=== PATIENT | female | born 1960 | race Caucasian/White ===

== ENCOUNTER 2021-06-20 23:43 | Inpatient (IN) | payer BC ==
[~2021-06-20] VITALS: Ht 160 cm; Wt 56.7 kg
[2021-06-20 23:30] VITALS: BP 122/59
[2021-06-21] VITALS (9 sets, daily range): BP systolic 101–134; BP diastolic 50–64
[2021-06-21] MEDS ORDERED: DEXTROSE 50% SYRINGE 50 ML IV PRN (00:30)
[2021-06-21] MEDS ORDERED: FEROSUL325 MG PO (00:36)
[2021-06-21] MEDS ORDERED: VITAMIN B-121000 MCG PO (00:36)
[2021-06-21] MEDS ORDERED: LIPITOR20 MG PO (00:36)
[2021-06-21] MEDS ORDERED: LISINOPRIL20 MG PO (00:36)
[2021-06-21] MEDS ORDERED: MULTI-VITAMIN1 EACH PO (00:36)
[2021-06-21] MEDS ORDERED: HYDROCHLOROTHIA25 MG PO (00:36)
[2021-06-21] MEDS ORDERED: vitamin d3 PO (00:36)
[2021-06-21] MEDS ORDERED: ULTRAM 50MG50 MG PO (00:36)
[2021-06-21] MEDS ORDERED: PREDNISONE5 MG PO (00:36)
[2021-06-21] MEDS ORDERED: VITAMIN C500 MG PO (00:36)
[2021-06-21] MEDS: HYDROMORPHONE 1MG/1ML INJ IV PRN ×2 (01:20→20:30)
[2021-06-21] MEDS ORDERED: LISINOPRIL 20 MG TAB PO SCH (01:30)
[2021-06-21] MEDS: DEXTROSE 5%/0.45% SOD CHL 1,000 ML IV SCH ×2 (01:32→16:07)
[2021-06-21] MEDS: TRAMADOL HCL 50 MG TAB PO PRN ×4 (03:30→22:50)
[2021-06-21] MEDS ORDERED: METRONIDAZOLE 500MG/NS 100ML 100 ML IV SCH (06:00)
[2021-06-21] MEDS ORDERED: PIPERACILLIN/TAZOBACTAM 3.375 GM in SODIUM CHLORIDE 0.9% 50ML 50 ML IV SCH (06:00)
[2021-06-21] MEDS: METRONIDAZOLE 500MG/NS 100ML 100 ML IV SCH ×3 (06:04→18:00)
[2021-06-21 06:12] LABS: BASOPHILS # (AUTO) 0.1 (0.0-0.1); BASOPHILS % 0.9 % (0.0-1.0); EOSINOPHILS # (AUTO) 0.3 (0.0-0.4); EOSINOPHILS % 3.3 % (0.0-6.0); HEMATOCRIT 35.3 % (34.2-44.1); HEMOGLOBIN 11.4 g/dL (12.0-16.0); LYMPHOCYTES # (AUTO) 1.9 (1.0-3.2); LYMPHOCYTES % 20.5 % (18.0-39.1); MEAN CORPUSCULAR HEMOGLOBIN 31.2 pg (28-32); MEAN CORPUSCULAR HGB CONC 32.3 g/dL (31-35); MEAN CORPUSCULAR VOLUME 96.7 fL (81-99); MONOCYTES # (AUTO) 0.9 (0.2-0.8); MONOCYTES % 10.1 % (4.4-11.3); PLATELET COUNT 408 x10e3/uL (140-360); RED BLOOD COUNT 3.65 x10e6/uL (3.6-5.1); RED CELL DISTRIBUTION WIDTH 14.4 % (11.7-14.4)
[2021-06-21 06:23] LABS: INR 0.9; PROTHROMBIN TIME 12.9 seconds (11.9-14.5)
[2021-06-21 06:24] LABS: PARTIAL THROMBOPLASTIN TIME 30.9 seconds (23.8-35.5)
[2021-06-21 06:32] LABS: ALBUMIN 2.7 g/dL (3.5-5.0); ALBUMIN/GLOBULIN RATIO 0.9 (0.8-2.0); ANION GAP 13.5 mmol/L (8-16); CREATININE, SERUM 0.76 mg/dL (0.57-1.11); POTASSIUM 4.5 mmol/L (3.5-5.1)
[2021-06-21] MEDS: PIPERACILLIN/TAZOBACTAM 3.375 GM in SODIUM CHLORIDE 0.9% 50ML 50 ML IV SCH ×3 (08:00→20:55)
[2021-06-21] MEDS: CYANOCOBALAMIN 1,000 MCG TAB PO SCH (09:00)
[2021-06-21] MEDS: MULTIVITAMINS/MINERALS TAB PO SCH (09:00)
[2021-06-21] MEDS: LISINOPRIL 20 MG TAB PO SCH ×2 (09:00→20:55)
[2021-06-21] MEDS: FERROUS SULFATE 325 MG TAB PO SCH (09:00)
[2021-06-21] MEDS: PREDNISONE 5 MG TAB PO SCH (09:00)
[2021-06-21] MEDS: CHOLECALCIFEROL 1,000 UNIT TAB PO SCH (09:00)
[2021-06-21] MEDS ORDERED: TRAMADOL HCL 50 MG TAB PO SCH (09:00)
[2021-06-21] MEDS: ASCORBIC ACID 500 MG TAB PO SCH (09:00)
[2021-06-21] MEDS: FAMOTIDINE 20 MG/2 ML VIAL IV SCH (16:17)
[2021-06-22] VITALS (8 sets, daily range): BP systolic 121–153; BP diastolic 55–68
[2021-06-22] MEDS: PIPERACILLIN/TAZOBACTAM 3.375 GM in SODIUM CHLORIDE 0.9% 50ML 50 ML IV SCH ×4 (02:37→20:18)
[2021-06-22] MEDS ORDERED: SODIUM CHLORIDE 0.9% 50ML 50 ML ONE ×2 (02:47→09:20)
[2021-06-22] MEDS: DEXTROSE 5%/0.45% SOD CHL 1,000 ML IV SCH ×2 (05:32→20:18)
[2021-06-22] MEDS: METRONIDAZOLE 500MG/NS 100ML 100 ML IV SCH ×5 (05:32→23:20)
[2021-06-22 06:26] LABS: BASOPHILS # (AUTO) 0.1 (0.0-0.1); BASOPHILS % 1.1 % (0.0-1.0); EOSINOPHILS # (AUTO) 0.3 (0.0-0.4); EOSINOPHILS % 3.5 % (0.0-6.0); HEMATOCRIT 34.8 % (34.2-44.1); HEMOGLOBIN 11.5 g/dL (12.0-16.0); LYMPHOCYTES # (AUTO) 1.5 (1.0-3.2); LYMPHOCYTES % 17.8 % (18.0-39.1); MEAN CORPUSCULAR HEMOGLOBIN 31.3 pg (28-32); MEAN CORPUSCULAR VOLUME 94.6 fL (81-99); MONOCYTES # (AUTO) 0.9 (0.2-0.8); MONOCYTES % 10.3 % (4.4-11.3); NEUTROPHILS # (AUTO) 5.6 (2.1-6.9); NEUTROPHILS % 66.9 % (38.7-80.0); PLATELET COUNT 405 x10e3/uL (140-360); RED BLOOD COUNT 3.68 x10e6/uL (3.6-5.1); RED CELL DISTRIBUTION WIDTH 14.3 % (11.7-14.4)
[2021-06-22 06:43] LABS: ALBUMIN 2.6 g/dL (3.5-5.0); ANION GAP 12.7 mmol/L (8-16); CALCIUM 8.1 mg/dL (8.4-10.2); CHOL/HDL RATIO 4.3 (3.0-3.6); CREATININE, SERUM 0.7 mg/dL (0.57-1.11); MAGNESIUM 1.7 MG/DL (1.3-2.1); POTASSIUM 3.7 mmol/L (3.5-5.1)
[2021-06-22] MEDS: TRAMADOL HCL 50 MG TAB PO PRN ×3 (06:50→18:00)
[2021-06-22 07:02] LABS: THYROID STIMULATING HORMONE 0.657 uIU/mL (0.350-4.940)
[2021-06-22] MEDS: FERROUS SULFATE 325 MG TAB PO SCH (09:00)
[2021-06-22] MEDS: FAMOTIDINE 20 MG/2 ML VIAL IV SCH ×2 (09:00→17:38)
[2021-06-22] MEDS: MULTIVITAMINS/MINERALS TAB PO SCH (09:00)
[2021-06-22] MEDS: CYANOCOBALAMIN 1,000 MCG TAB PO SCH (09:00)
[2021-06-22] MEDS: LISINOPRIL 20 MG TAB PO SCH ×2 (09:00→20:21)
[2021-06-22] MEDS: ASCORBIC ACID 500 MG TAB PO SCH (09:00)
[2021-06-22] MEDS: CHOLECALCIFEROL 1,000 UNIT TAB PO SCH (09:00)
[2021-06-22] MEDS: PREDNISONE 5 MG TAB PO SCH (09:00)
[2021-06-22] MEDS: HYDROMORPHONE 1MG/1ML INJ IV PRN ×2 (09:10→20:08)
[2021-06-22] MEDS: CLINDAMYCIN 600MG / 50ML 50 ML IV SCH ×2 (15:45→23:20)
[2021-06-22 16:20] LABS: PHOSPHORUS 2.9 MG/DL (2.3-4.7)
[2021-06-22] MEDS: ONDANSETRON HCL INJ 2MG/ML 2ML 2 MG/ML VIAL IV PRN (20:18)
[2021-06-23] VITALS (8 sets, daily range): BP systolic 110–171; BP diastolic 58–78
[2021-06-23] MEDS: ONDANSETRON HCL INJ 2MG/ML 2ML 2 MG/ML VIAL IV PRN ×2 (02:15→21:03)
[2021-06-23] MEDS: PIPERACILLIN/TAZOBACTAM 3.375 GM in SODIUM CHLORIDE 0.9% 50ML 50 ML IV SCH ×4 (02:15→20:00)
[2021-06-23] MEDS: TRAMADOL HCL 50 MG TAB PO PRN ×3 (02:16→23:10)
[2021-06-23] MEDS: HYDROMORPHONE 1MG/1ML INJ IV PRN ×2 (04:08→13:11)
[2021-06-23] MEDS: METRONIDAZOLE 500MG/NS 100ML 100 ML IV SCH (04:45)
[2021-06-23] MEDS: CLINDAMYCIN 600MG / 50ML 50 ML IV SCH ×3 (06:30→23:10)
[2021-06-23] MEDS: FAMOTIDINE 20 MG/2 ML VIAL IV SCH ×2 (08:21→16:02)
[2021-06-23] MEDS: PREDNISONE 5 MG TAB PO SCH (08:22)
[2021-06-23] MEDS: MULTIVITAMINS/MINERALS TAB PO SCH (09:00)
[2021-06-23] MEDS: LISINOPRIL 20 MG TAB PO SCH ×2 (09:00→21:55)
[2021-06-23] MEDS: CHOLECALCIFEROL 1,000 UNIT TAB PO SCH (09:00)
[2021-06-23] MEDS: FERROUS SULFATE 325 MG TAB PO SCH (09:00)
[2021-06-23] MEDS: CYANOCOBALAMIN 1,000 MCG TAB PO SCH (09:00)
[2021-06-23] MEDS: ASCORBIC ACID 500 MG TAB PO SCH (09:00)
[2021-06-23] MEDS: DEXTROSE 5%/0.45% SOD CHL 1,000 ML IV SCH (09:31)
[2021-06-23] MEDS: ACETAMINOPHEN 325 MG TAB PO PRN (11:24)
[2021-06-23] MEDS ORDERED: DIATRIZOATE MEGL/DIATRIZOA SOD 30 ML BTL PO ONE (14:01)
[2021-06-24] VITALS (8 sets, daily range): BP systolic 114–132; BP diastolic 59–72
[2021-06-24] MEDS: HYDROMORPHONE 1MG/1ML INJ IV PRN ×5 (02:07→23:02)
[2021-06-24] MEDS: ONDANSETRON HCL INJ 2MG/ML 2ML 2 MG/ML VIAL IV PRN ×5 (02:09→23:02)
[2021-06-24] MEDS: PIPERACILLIN/TAZOBACTAM 3.375 GM in SODIUM CHLORIDE 0.9% 50ML 50 ML IV SCH ×4 (02:11→20:30)
[2021-06-24 05:58] LABS: BASOPHILS # (AUTO) 0.1 (0.0-0.1); BASOPHILS % 0.5 % (0.0-1.0); EOSINOPHILS # (AUTO) 0.3 (0.0-0.4); EOSINOPHILS % 1.6 % (0.0-6.0); HEMATOCRIT 35.2 % (34.2-44.1); LYMPHOCYTES # (AUTO) 0.8 (1.0-3.2); LYMPHOCYTES % 4.7 % (18.0-39.1); MEAN CORPUSCULAR HEMOGLOBIN 31.8 pg (28-32); MEAN CORPUSCULAR HGB CONC 34.1 g/dL (31-35); MEAN CORPUSCULAR VOLUME 93.4 fL (81-99); MONOCYTES # (AUTO) 0.7 (0.2-0.8); NEUTROPHILS # (AUTO) 15.7 (2.1-6.9); NEUTROPHILS % 88.6 % (38.7-80.0); PLATELET COUNT 380 x10e3/uL (140-360); RED BLOOD COUNT 3.77 x10e6/uL (3.6-5.1); RED CELL DISTRIBUTION WIDTH 13.9 % (11.7-14.4)
[2021-06-24 06:28] LABS: ALBUMIN 2.3 g/dL (3.5-5.0); ALBUMIN/GLOBULIN RATIO 0.7 (0.8-2.0); AMYLASE 926 U/L (25-125); ANION GAP 11.9 mmol/L (8-16); CALCIUM 8.2 mg/dL (8.4-10.2); CREATININE, SERUM 0.64 mg/dL (0.57-1.11); LIPASE 648 U/L (8-78)
[2021-06-24 06:31] LABS: POTASSIUM 2.9 mmol/L (3.5-5.1)
[2021-06-24] MEDS: CLINDAMYCIN 600MG / 50ML 50 ML IV SCH ×3 (07:00→23:01)
[2021-06-24] MEDS: FAMOTIDINE 20 MG/2 ML VIAL IV SCH ×2 (08:27→16:20)
[2021-06-24] MEDS: PREDNISONE 5 MG TAB PO SCH (08:27)
[2021-06-24] MEDS: LISINOPRIL 20 MG TAB PO SCH ×2 (08:27→21:31)
[2021-06-24] MEDS ORDERED: POTASSIUM CHLORIDE 20MEQ/100ML 200 ML IV ONE ×2 (10:00→13:00)
[2021-06-24] MEDS ORDERED: HEPARIN SOD (PORCINE) 1000 UNIT/ML SDV IV ONE (10:15)
[2021-06-24] MEDS: HEPARIN 25,000 UNIT 1,000 UNIT in DEXTROSE 5% 250ML 250 ML IV SCH (13:59)
[2021-06-24] MEDS ORDERED: HEPARIN SOD (PORCINE) 5,000 UNIT/ML VIAL ONE (14:05)
[2021-06-24] MEDS: DEXTROSE 5%/0.45% SOD CHL 1,000 ML IV SCH ×2 (16:18)
[2021-06-24] MEDS: TRAMADOL HCL 50 MG TAB PO PRN (16:19)
[2021-06-25] VITALS (8 sets, daily range): BP systolic 117–139; BP diastolic 58–95
[2021-06-25] MEDS: TRAMADOL HCL 50 MG TAB PO PRN ×3 (00:53→18:30)
[2021-06-25] MEDS: PIPERACILLIN/TAZOBACTAM 3.375 GM in SODIUM CHLORIDE 0.9% 50ML 50 ML IV SCH ×4 (02:54→20:05)
[2021-06-25] MEDS: HYDROMORPHONE 1MG/1ML INJ IV PRN ×4 (04:07→20:03)
[2021-06-25] MEDS: ONDANSETRON HCL INJ 2MG/ML 2ML 2 MG/ML VIAL IV PRN ×3 (04:07→15:46)
[2021-06-25] MEDS: DEXTROSE 5%/0.45% SOD CHL 1,000 ML IV SCH ×4 (04:36→21:45)
[2021-06-25 05:33] LABS: BASOPHILS # (AUTO) 0.1 (0.0-0.1); BASOPHILS % 0.4 % (0.0-1.0); EOSINOPHILS # (AUTO) 0.6 (0.0-0.4); EOSINOPHILS % 4.9 % (0.0-6.0); HEMOGLOBIN 10.5 g/dL (12.0-16.0); MEAN CORPUSCULAR HEMOGLOBIN 32.3 pg (28-32); MEAN CORPUSCULAR VOLUME 92.3 fL (81-99); MONOCYTES # (AUTO) 0.8 (0.2-0.8); MONOCYTES % 6.1 % (4.4-11.3); NEUTROPHILS % 80.2 % (38.7-80.0); PLATELET COUNT 344 x10e3/uL (140-360); RED BLOOD COUNT 3.25 x10e6/uL (3.6-5.1); RED CELL DISTRIBUTION WIDTH 14.1 % (11.7-14.4)
[2021-06-25 06:14] LABS: ALBUMIN 2.2 g/dL (3.5-5.0); ALBUMIN/GLOBULIN RATIO 0.8 (0.8-2.0); ANION GAP 10.1 mmol/L (8-16); CREATININE, SERUM 0.56 mg/dL (0.57-1.11); POTASSIUM 3.1 mmol/L (3.5-5.1)
[2021-06-25] MEDS: CLINDAMYCIN 600MG / 50ML 50 ML IV SCH ×2 (07:15→15:00)
[2021-06-25] MEDS ORDERED: SODIUM CHLORIDE 0.9% 250ML 250 ML ONE ×2 (08:47→20:09)
[2021-06-25] MEDS: FAMOTIDINE 20 MG/2 ML VIAL IV SCH ×2 (09:00→17:00)
[2021-06-25] MEDS: PREDNISONE 5 MG TAB PO SCH (09:00)
[2021-06-25] MEDS: LISINOPRIL 20 MG TAB PO SCH ×2 (09:00→20:15)
[2021-06-25] MEDS: HEPARIN 25,000 UNIT 1,000 UNIT in DEXTROSE 5% 250ML 250 ML IV SCH ×2 (10:30→13:45)
[2021-06-25] MEDS ORDERED: POTASSIUM CHLORIDE 20MEQ/100ML 100 ML IV ONE ×2 (15:30→21:00)
[2021-06-26] VITALS (7 sets, daily range): BP systolic 127–150; BP diastolic 58–91
[2021-06-26] MEDS: TRAMADOL HCL 50 MG TAB PO PRN ×3 (00:30→18:40)
[2021-06-26] MEDS: ONDANSETRON HCL INJ 2MG/ML 2ML 2 MG/ML VIAL IV PRN ×3 (00:30→21:10)
[2021-06-26] MEDS: HYDROMORPHONE 1MG/1ML INJ IV PRN ×3 (00:30→21:10)
[2021-06-26] MEDS: CLINDAMYCIN 600MG / 50ML 50 ML IV SCH ×4 (02:25→18:00)
[2021-06-26] MEDS: PIPERACILLIN/TAZOBACTAM 3.375 GM in SODIUM CHLORIDE 0.9% 50ML 50 ML IV SCH ×4 (02:55→21:00)
[2021-06-26] MEDS: LISINOPRIL 20 MG TAB PO SCH ×2 (09:00→21:18)
[2021-06-26] MEDS: PREDNISONE 5 MG TAB PO SCH (09:00)
[2021-06-26] MEDS: FAMOTIDINE 20 MG/2 ML VIAL IV SCH ×2 (09:00→17:00)
[2021-06-26 09:12] LABS: BASOPHILS # (AUTO) 0.1 (0.0-0.1); BASOPHILS % 0.3 % (0.0-1.0); EOSINOPHILS # (AUTO) 0.4 (0.0-0.4); EOSINOPHILS % 2.2 % (0.0-6.0); HEMATOCRIT 35.8 % (34.2-44.1); HEMOGLOBIN 11.6 g/dL (12.0-16.0); LYMPHOCYTES # (AUTO) 1.5 (1.0-3.2); LYMPHOCYTES % 8.6 % (18.0-39.1); MEAN CORPUSCULAR HEMOGLOBIN 31.6 pg (28-32); MEAN CORPUSCULAR HGB CONC 32.4 g/dL (31-35); MEAN CORPUSCULAR VOLUME 97.5 fL (81-99); MONOCYTES # (AUTO) 1.2 (0.2-0.8); MONOCYTES % 7.3 % (4.4-11.3); NEUTROPHILS # (AUTO) 13.8 (2.1-6.9); NEUTROPHILS % 81.2 % (38.7-80.0); PLATELET COUNT 368 x10e3/uL (140-360); RED BLOOD COUNT 3.67 x10e6/uL (3.6-5.1); RED CELL DISTRIBUTION WIDTH 14.6 % (11.7-14.4)
[2021-06-26 09:46] LABS: ALANINE AMINOTRANSFERASE 9 IU/L (0-55); ALBUMIN 2.3 g/dL (3.5-5.0); ALBUMIN/GLOBULIN RATIO 0.6 (0.8-2.0); ALKALINE PHOSPHATASE 97 IU/L (40-150); AMYLASE 95 U/L (25-125); ANION GAP 13.2 mmol/L (8-16); BLOOD UREA NITROGEN < 5 mg/dL (7-26); CALCIUM 8.6 mg/dL (8.4-10.2); CARBON DIOXIDE 22 mmol/L (22-29); CHLORIDE 105 mmol/L (98-107); CREATININE, SERUM 0.59 mg/dL (0.57-1.11); EST GLOMERULAR FILTRATION RATE 104 ML/MIN (60-); GLUCOSE 98 mg/dL (74-118); LIPASE 111 U/L (8-78); POTASSIUM 3.2 mmol/L (3.5-5.1); SODIUM 137 mmol/L (136-145)
[2021-06-26 09:51] LABS: BUN/CREATININE RATIO 8 (6-25)
[2021-06-26] MEDS: HEPARIN 25,000 UNIT 1,000 UNIT in DEXTROSE 5% 250ML 250 ML IV SCH (10:30)
[2021-06-26] MEDS ORDERED: POTASSIUM CHLORIDE 20 MEQ TAB CR PO ONE ×2 (16:45→21:00)
[2021-06-26] MEDS ORDERED: SODIUM CHLORIDE 0.9% 50ML 50 ML ONE (18:04)
[2021-06-26] MEDS ORDERED: IOPAMIDOL 370 MG/ML 200 ML INFUS..BTL INJ ONE (18:04)
[2021-06-26] MEDS ORDERED: METRONIDAZOLE 500MG/NS 100ML 100 ML IV SCH (22:00)
[2021-06-26] MEDS: DEXTROSE 5%/0.45% SOD CHL 1,000 ML IV SCH (22:45)
[2021-06-26] MEDS ORDERED: METRONIDAZOLE 500 MG TAB PO ONE (23:00)
[2021-06-27] VITALS (8 sets, daily range): BP systolic 126–154; BP diastolic 54–72
[2021-06-27] MEDS: TRAMADOL HCL 50 MG TAB PO PRN ×4 (00:43→19:26)
[2021-06-27] MEDS: PIPERACILLIN/TAZOBACTAM 3.375 GM in SODIUM CHLORIDE 0.9% 50ML 50 ML IV SCH ×4 (02:00→20:00)
[2021-06-27] MEDS: CLINDAMYCIN 600MG / 50ML 50 ML IV SCH ×3 (02:45→16:32)
[2021-06-27] MEDS: HYDROMORPHONE 1MG/1ML INJ IV PRN ×3 (04:45→15:19)
[2021-06-27] MEDS: METRONIDAZOLE 500 MG TAB PO SCH ×3 (05:15→16:32)
[2021-06-27] MEDS: LISINOPRIL 20 MG TAB PO SCH ×2 (10:18→21:36)
[2021-06-27] MEDS: PREDNISONE 5 MG TAB PO SCH (10:18)
[2021-06-27] MEDS: FAMOTIDINE 20 MG/2 ML VIAL IV SCH ×2 (10:18→15:19)
[2021-06-27 14:04] LABS: BASOPHILS % 0.2 % (0.0-1.0); EOSINOPHILS # (AUTO) 0.1 (0.0-0.4); EOSINOPHILS % 0.4 % (0.0-6.0); HEMATOCRIT 32.6 % (34.2-44.1); HEMOGLOBIN 10.8 g/dL (12.0-16.0); LYMPHOCYTES # (AUTO) 1.1 (1.0-3.2); LYMPHOCYTES % 6.7 % (18.0-39.1); MEAN CORPUSCULAR HEMOGLOBIN 31.5 pg (28-32); MEAN CORPUSCULAR HGB CONC 33.1 g/dL (31-35); MONOCYTES % 6.3 % (4.4-11.3); NEUTROPHILS # (AUTO) 14.2 (2.1-6.9); PLATELET COUNT 501 x10e3/uL (140-360); RED BLOOD COUNT 3.43 x10e6/uL (3.6-5.1); RED CELL DISTRIBUTION WIDTH 14.5 % (11.7-14.4)
[2021-06-27] MEDS: DEXTROSE 5%/0.45% SOD CHL 1,000 ML IV SCH (14:05)
[2021-06-27 14:43] LABS: ALANINE AMINOTRANSFERASE 9 IU/L (0-55); ALBUMIN 2.3 g/dL (3.5-5.0); ALBUMIN/GLOBULIN RATIO 0.7 (0.8-2.0); ALKALINE PHOSPHATASE 106 IU/L (40-150); AMYLASE 111 U/L (25-125); BLOOD UREA NITROGEN < 5 mg/dL (7-26); CALCIUM 8.4 mg/dL (8.4-10.2); CARBON DIOXIDE 21 mmol/L (22-29); CHLORIDE 106 mmol/L (98-107); CREATININE, SERUM 0.55 mg/dL (0.57-1.11); EST GLOMERULAR FILTRATION RATE 112 ML/MIN (60-); GLUCOSE 122 mg/dL (74-118); LIPASE 141 U/L (8-78); SODIUM 138 mmol/L (136-145)
[2021-06-27 14:44] LABS: BUN/CREATININE RATIO 9 (6-25)
[2021-06-27] MEDS: ONDANSETRON HCL INJ 2MG/ML 2ML 2 MG/ML VIAL IV PRN (19:26)
[2021-06-28] VITALS (8 sets, daily range): BP systolic 134–155; BP diastolic 69–83
[2021-06-28] MEDS: METRONIDAZOLE 500 MG TAB PO SCH ×4 (00:30→17:52)
[2021-06-28] MEDS: ONDANSETRON HCL INJ 2MG/ML 2ML 2 MG/ML VIAL IV PRN (00:30)
[2021-06-28] MEDS: HEPARIN 25,000 UNIT 1,000 UNIT in DEXTROSE 5% 250ML 250 ML IV SCH ×2 (01:01→10:30)
[2021-06-28] MEDS: CHLORDIAZEPOXIDE/CLIDINIUM 1 CAP PO SCH ×4 (01:19→21:42)
[2021-06-28] MEDS: PIPERACILLIN/TAZOBACTAM 3.375 GM in SODIUM CHLORIDE 0.9% 50ML 50 ML IV SCH (02:00)
[2021-06-28] MEDS: HYDROMORPHONE 1MG/1ML INJ IV PRN ×4 (02:05→23:10)
[2021-06-28] MEDS: CLINDAMYCIN 600MG / 50ML 50 ML IV SCH ×3 (02:05→17:52)
[2021-06-28] MEDS: DEXTROSE 5%/0.45% SOD CHL 1,000 ML IV SCH (05:37)
[2021-06-28] MEDS: TRAMADOL HCL 50 MG TAB PO PRN ×3 (06:04→20:30)
[2021-06-28] MEDS ORDERED: CHLORDIAZEPOXIDE/CLIDINIUM 1 CAP PO SCH (07:30)
[2021-06-28 08:08] LABS: BASOPHILS # (AUTO) 0.1 (0.0-0.1); BASOPHILS % 0.5 % (0.0-1.0); EOSINOPHILS # (AUTO) 0.5 (0.0-0.4); EOSINOPHILS % 3.7 % (0.0-6.0); HEMATOCRIT 33.6 % (34.2-44.1); HEMOGLOBIN 11.4 g/dL (12.0-16.0); LYMPHOCYTES # (AUTO) 1.4 (1.0-3.2); MEAN CORPUSCULAR HEMOGLOBIN 31.8 pg (28-32); MEAN CORPUSCULAR HGB CONC 33.9 g/dL (31-35); MEAN CORPUSCULAR VOLUME 93.9 fL (81-99); MONOCYTES # (AUTO) 0.9 (0.2-0.8); MONOCYTES % 7.2 % (4.4-11.3); NEUTROPHILS # (AUTO) 9.8 (2.1-6.9); NEUTROPHILS % 77.4 % (38.7-80.0); PLATELET COUNT 535 x10e3/uL (140-360); RED BLOOD COUNT 3.58 x10e6/uL (3.6-5.1); RED CELL DISTRIBUTION WIDTH 14.2 % (11.7-14.4)
[2021-06-28] MEDS ORDERED: MAGNESIUM SULFATE 2GM/50ML 50 ML IV ONE (08:30)
[2021-06-28 08:39] LABS: ALANINE AMINOTRANSFERASE 11 IU/L (0-55); ALBUMIN 2.3 g/dL (3.5-5.0); ALBUMIN/GLOBULIN RATIO 0.7 (0.8-2.0); ALKALINE PHOSPHATASE 95 IU/L (40-150); AMYLASE 103 U/L (25-125); ANION GAP 12.6 mmol/L (8-16); BLOOD UREA NITROGEN < 5 mg/dL (7-26); CALCIUM 8.4 mg/dL (8.4-10.2); CARBON DIOXIDE 24 mmol/L (22-29); CHLORIDE 105 mmol/L (98-107); CREATININE, SERUM 0.54 mg/dL (0.57-1.11); EST GLOMERULAR FILTRATION RATE 115 ML/MIN (60-); GLUCOSE 123 mg/dL (74-118); LIPASE 133 U/L (8-78); SODIUM 139 mmol/L (136-145)
[2021-06-28 08:40] LABS: BUN/CREATININE RATIO 9 (6-25)
[2021-06-28 08:41] LABS: POTASSIUM 2.6 mmol/L (3.5-5.1)
[2021-06-28] MEDS: HYDRALAZINE HCL 20 MG/ML VIAL IV PRN ×2 (09:00→09:59)
[2021-06-28] MEDS: FAMOTIDINE 20 MG/2 ML VIAL IV SCH ×2 (09:40→17:52)
[2021-06-28] MEDS ORDERED: AMLODIPINE BESYLATE 5 MG TAB PO NR (10:30)
[2021-06-28] MEDS: POTASSIUM CHLORIDE 20 MEQ TAB CR PO SCH ×2 (11:25→17:52)
[2021-06-28] MEDS ORDERED: BISACODYL 5 MG TAB EC PO PRN (17:15)
[2021-06-29] VITALS (8 sets, daily range): BP systolic 133–157; BP diastolic 69–87
[2021-06-29] MEDS: METRONIDAZOLE 500 MG TAB PO SCH ×4 (00:21→17:30)
[2021-06-29] MEDS: POTASSIUM CHLORIDE 20 MEQ TAB CR PO SCH (00:22)
[2021-06-29] MEDS ORDERED: SODIUM CHLORIDE 0.9% 250ML 250 ML ONE ×2 (00:24→17:27)
[2021-06-29] MEDS: TRAMADOL HCL 50 MG TAB PO PRN ×3 (02:30→17:45)
[2021-06-29] MEDS: CLINDAMYCIN 600MG / 50ML 50 ML IV SCH ×3 (02:30→17:22)
[2021-06-29] MEDS: CHLORDIAZEPOXIDE/CLIDINIUM 1 CAP PO SCH ×3 (05:59→21:34)
[2021-06-29] MEDS: FAMOTIDINE 20 MG/2 ML VIAL IV SCH ×2 (08:32→17:30)
[2021-06-29 08:36] LABS: BASOPHILS # (AUTO) 0.1 (0.0-0.1); BASOPHILS % 0.5 % (0.0-1.0); EOSINOPHILS # (AUTO) 0.5 (0.0-0.4); EOSINOPHILS % 4.1 % (0.0-6.0); HEMATOCRIT 33.5 % (34.2-44.1); HEMOGLOBIN 11.2 g/dL (12.0-16.0); LYMPHOCYTES # (AUTO) 1.6 (1.0-3.2); LYMPHOCYTES % 12.5 % (18.0-39.1); MEAN CORPUSCULAR HEMOGLOBIN 31.2 pg (28-32); MEAN CORPUSCULAR HGB CONC 33.4 g/dL (31-35); MEAN CORPUSCULAR VOLUME 93.3 fL (81-99); MONOCYTES % 7.6 % (4.4-11.3); NEUTROPHILS # (AUTO) 9.6 (2.1-6.9); PLATELET COUNT 610 x10e3/uL (140-360); RED BLOOD COUNT 3.59 x10e6/uL (3.6-5.1); RED CELL DISTRIBUTION WIDTH 14.5 % (11.7-14.4)
[2021-06-29 08:38] LABS: ALANINE AMINOTRANSFERASE 10 IU/L (0-55); ALBUMIN 2.2 g/dL (3.5-5.0); ALBUMIN/GLOBULIN RATIO 0.7 (0.8-2.0); ALKALINE PHOSPHATASE 85 IU/L (40-150); AMYLASE 105 U/L (25-125); ANION GAP 13.6 mmol/L (8-16); BLOOD UREA NITROGEN < 5 mg/dL (7-26); CALCIUM 8.4 mg/dL (8.4-10.2); CARBON DIOXIDE 20 mmol/L (22-29); CHLORIDE 108 mmol/L (98-107); CREATININE, SERUM 0.53 mg/dL (0.57-1.11); EST GLOMERULAR FILTRATION RATE 117 ML/MIN (60-); GLUCOSE 94 mg/dL (74-118); LIPASE 119 U/L (8-78); MAGNESIUM 1.5 MG/DL (1.3-2.1); POTASSIUM 3.6 mmol/L (3.5-5.1); SODIUM 138 mmol/L (136-145)
[2021-06-29 08:41] LABS: BUN/CREATININE RATIO 9 (6-25)
[2021-06-29] MEDS ORDERED: AMLODIPINE BESYLATE 5 MG TAB PO SCH (09:00)
[2021-06-29] MEDS: HEPARIN 25,000 UNIT 1,000 UNIT in DEXTROSE 5% 250ML 250 ML IV SCH (11:09)
[2021-06-29] MEDS ORDERED: MAGNESIUM SULF 1GRAM/DEXTROSE 100 ML IV ONE (16:30)
[2021-06-29] MEDS ORDERED: MAGNESIUM SULFATE 2GM/50ML 50 ML IV ONE (16:30)
[2021-06-29] MEDS ORDERED: AMLODIPINE BESYLATE 5 MG TAB PO NR (16:45)
[2021-06-29] MEDS ORDERED: POTASSIUM PHOSPHATE 15 MM in SODIUM CHLORIDE 0.9% 250ML 250 ML IV ONE (17:00)
[2021-06-29] MEDS: APIXABAN 5 MG TABLET PO SCH (17:30)
[2021-06-29] MEDS ORDERED: LEVOFLOXACIN 500MG/D5W 100ML 100 ML IV ONE (23:00)
[2021-06-30] VITALS: BP 121/70
[2021-06-30] MEDS: METRONIDAZOLE 500 MG TAB PO SCH ×5 (00:21→23:41)
[2021-06-30] MEDS: TRAMADOL HCL 50 MG TAB PO PRN ×4 (00:21→20:42)
[2021-06-30] MEDS: ACETAMINOPHEN 325 MG TAB PO PRN (03:39)
[2021-06-30 04:00] VITALS: BP 136/69
[2021-06-30 05:37] LABS: BASOPHILS # (AUTO) 0.1 (0.0-0.1); BASOPHILS % 0.6 % (0.0-1.0); EOSINOPHILS # (AUTO) 0.5 (0.0-0.4); EOSINOPHILS % 4.3 % (0.0-6.0); HEMATOCRIT 31.3 % (34.2-44.1); HEMOGLOBIN 10.8 g/dL (12.0-16.0); LYMPHOCYTES # (AUTO) 1.3 (1.0-3.2); LYMPHOCYTES % 11.3 % (18.0-39.1); MEAN CORPUSCULAR HEMOGLOBIN 31.9 pg (28-32); MEAN CORPUSCULAR HGB CONC 34.5 g/dL (31-35); MEAN CORPUSCULAR VOLUME 92.3 fL (81-99); MONOCYTES # (AUTO) 0.9 (0.2-0.8); MONOCYTES % 7.5 % (4.4-11.3); NEUTROPHILS # (AUTO) 8.9 (2.1-6.9); NEUTROPHILS % 75.7 % (38.7-80.0); PLATELET COUNT 622 x10e3/uL (140-360); RED BLOOD COUNT 3.39 x10e6/uL (3.6-5.1); RED CELL DISTRIBUTION WIDTH 14.6 % (11.7-14.4)
[2021-06-30] MEDS: CHLORDIAZEPOXIDE/CLIDINIUM 1 CAP PO SCH ×3 (05:46→20:42)
[2021-06-30 06:07] LABS: AMYLASE 102 U/L (25-125); LIPASE 144 U/L (8-78)
[2021-06-30 06:25] LABS: ALANINE AMINOTRANSFERASE 9 IU/L (0-55); ALBUMIN 2.2 g/dL (3.5-5.0); ALBUMIN/GLOBULIN RATIO 0.7 (0.8-2.0); ALKALINE PHOSPHATASE 85 IU/L (40-150); ANION GAP 12.4 mmol/L (8-16); BLOOD UREA NITROGEN < 5 mg/dL (7-26); CALCIUM 8.2 mg/dL (8.4-10.2); CARBON DIOXIDE 21 mmol/L (22-29); CHLORIDE 106 mmol/L (98-107); CREATININE, SERUM 0.55 mg/dL (0.57-1.11); EST GLOMERULAR FILTRATION RATE 112 ML/MIN (60-); GLUCOSE 161 mg/dL (74-118); MAGNESIUM 1.7 MG/DL (1.3-2.1); PHOSPHORUS 3.5 MG/DL (2.3-4.7); POTASSIUM 3.4 mmol/L (3.5-5.1); SODIUM 136 mmol/L (136-145)
[2021-06-30 06:26] LABS: BUN/CREATININE RATIO 9 (6-25)
[2021-06-30 08:00] VITALS: BP 128/90
[2021-06-30] MEDS: AMLODIPINE BESYLATE 5 MG TAB PO SCH (09:48)
[2021-06-30] MEDS: FAMOTIDINE 20 MG/2 ML VIAL IV SCH ×2 (09:48→16:34)
[2021-06-30] MEDS: APIXABAN 5 MG TABLET PO SCH ×2 (09:48→16:34)
[2021-06-30 10:48] LABS: % IRON SATURATION 61 % (15-50); IRON 72 ug/dL (50-170); TOTAL IRON BINDING CAPACITY 119 ug/dL (261-478); TRANSFERRIN 85 mg/dL (180-382)
[2021-06-30 15:10] VITALS: BP 134/85
[2021-06-30 20:00] VITALS: BP 146/78
[2021-06-30 21:00] VITALS: BP 146/78
[2021-06-30] MEDS ORDERED: LIDOCAINE 4% PATCH TP SCH (21:00)
[2021-06-30] MEDS ORDERED: LEVOFLOXACIN 500MG/D5W 100ML 100 ML IV SCH (23:00)
[2021-07-01] VITALS: BP 121/69
[2021-07-01 04:00] VITALS: BP 146/84
[2021-07-01 05:25] LABS: BASOPHILS # (AUTO) 0.1 (0.0-0.1); BASOPHILS % 0.5 % (0.0-1.0); EOSINOPHILS # (AUTO) 0.4 (0.0-0.4); EOSINOPHILS % 3.9 % (0.0-6.0); HEMATOCRIT 33.1 % (34.2-44.1); HEMOGLOBIN 11.5 g/dL (12.0-16.0); LYMPHOCYTES # (AUTO) 1.4 (1.0-3.2); LYMPHOCYTES % 12.9 % (18.0-39.1); MEAN CORPUSCULAR HEMOGLOBIN 31.8 pg (28-32); MEAN CORPUSCULAR HGB CONC 34.7 g/dL (31-35); MEAN CORPUSCULAR VOLUME 91.4 fL (81-99); MONOCYTES % 9.2 % (4.4-11.3); NEUTROPHILS % 72.9 % (38.7-80.0); PLATELET COUNT 654 x10e3/uL (140-360); RED BLOOD COUNT 3.62 x10e6/uL (3.6-5.1); RED CELL DISTRIBUTION WIDTH 14.9 % (11.7-14.4)
[2021-07-01] MEDS: METRONIDAZOLE 500 MG TAB PO SCH ×3 (05:45→16:54)
[2021-07-01] MEDS: CHLORDIAZEPOXIDE/CLIDINIUM 1 CAP PO SCH (05:45)
[2021-07-01 05:49] LABS: ANION GAP 13.3 mmol/L (8-16); BLOOD UREA NITROGEN < 5 mg/dL (7-26); BUN/CREATININE RATIO 9 (6-25); CALCIUM 8.7 mg/dL (8.4-10.2); CARBON DIOXIDE 23 mmol/L (22-29); CHLORIDE 106 mmol/L (98-107); CREATININE, SERUM 0.58 mg/dL (0.57-1.11); EST GLOMERULAR FILTRATION RATE 106 ML/MIN (60-); GLUCOSE 104 mg/dL (74-118); POTASSIUM 3.3 mmol/L (3.5-5.1); SODIUM 139 mmol/L (136-145)
[2021-07-01 06:28] LABS: FERRITIN 235.22 ng/mL (4.63-204.00)
[2021-07-01 08:25] VITALS: BP 132/70
[2021-07-01 08:48] VITALS: BP 132/70
[2021-07-01] MEDS ORDERED: BISACODYL 5 MG TAB EC PO ONE (09:00)
[2021-07-01] MEDS: FAMOTIDINE 20 MG/2 ML VIAL IV SCH (09:18)
[2021-07-01] MEDS: APIXABAN 5 MG TABLET PO SCH ×2 (09:20→16:54)
[2021-07-01] MEDS: AMLODIPINE BESYLATE 5 MG TAB PO SCH (09:20)
[2021-07-01] MEDS: TRAMADOL HCL 50 MG TAB PO PRN ×2 (09:31→15:55)
[2021-07-01] MEDS ORDERED: POTASSIUM CHLORIDE 20 MEQ TAB CR PO NR (11:30)
[2021-07-01 12:22] VITALS: BP 135/86
[2021-07-01 16:01] VITALS: BP 134/87
[2021-07-01] MEDS ORDERED: LEVOFLOXACIN250 MG PO (17:44)
[2021-07-01] MEDS ORDERED: ELIQUIS5 MG PO (17:44)
[2021-07-01] MEDS ORDERED: ONDANSETRON HCL 4 MG ORAL DISINTEGRATING TAB PO PRN (17:45)
[2021-07-01] MEDS ORDERED: NORVASC10 MG PO (17:45)
[2021-07-01] MEDS ORDERED: FLAGYL375 MG PO (17:45)
[2021-07-01] MEDS ORDERED: LEVOFLOXACIN 500 MG TAB PO SCH (23:00)
[2021-07-02] MEDS ORDERED: BISACODYL 5 MG TAB EC PO SCH (06:00)
[2021-07-02] MEDS ORDERED: BISACODYL 5 MG TAB EC PO ONE (09:00)
== END 2021-07-01 18:25 | disposition home or self-care (01) | DRG 299 ==
LOC: MED/SURG 06-21 00:16
PROVIDERS: ADMIT Internal Medicine; ATTEND Internal Medicine
PROC: 02HV33Z Insertion of Infusion Device into Superior Vena Cava, Percutaneous Approach (ICD-10-PCS; principal; 2021-06-21)
DX: I82.622 Acute embolism and thrombosis of deep veins of left upper extremity (principal); K85.90 Acute pancreatitis without necrosis or infection, unspecified; K57.20 Diverticulitis of large intestine with perforation and abscess without bleeding; M19.90 Unspecified osteoarthritis, unspecified site; M06.9 Rheumatoid arthritis, unspecified; I10 Essential (primary) hypertension; E78.5 Hyperlipidemia, unspecified; Z20.822 Contact with and (suspected) exposure to COVID-19; D75.839 Thrombocytosis, unspecified; E88.09 Other disorders of plasma-protein metabolism, not elsewhere classified; E87.6 Hypokalemia; E83.39 Other disorders of phosphorus metabolism; E83.42 Hypomagnesemia
CPT/HCPCS: 36415; 71045; 74018; 74177; 76705; 80048; 80053; 80061; 82150; 82607; 82728; 82746; 82948; 83036; 83540; 83690; 83735; 84100; 84443; 84466; 85025; 85045; 85610; 85730; 87040; 87045; 87493; 93005; 93971; 94799; 96367; J1170; J1644; J1956; J2405; J2543; J3475; J3480; J7050; J7512; Q9967

== ENCOUNTER 2021-08-26 11:16 | Emergency (ER) | payer BC ==
[~2021-08-26] VITALS: Ht 160 cm; Wt 56.7 kg
[~2021-08-26 11:16] MED LIST: ELIQUIS5 MG PO; FEROSUL325 MG PO; FLAGYL375 MG PO; HYDROCHLOROTHIA25 MG PO; LEVOFLOXACIN250 MG PO; LIPITOR20 MG PO; LISINOPRIL20 MG PO; MULTI-VITAMIN1 EACH PO; NORVASC10 MG PO; PREDNISONE5 MG PO; ULTRAM 50MG50 MG PO; VITAMIN B-121000 MCG PO; VITAMIN C500 MG PO; vitamin d3 PO
[2021-08-26 12:09] LABS: CLARITY,URINE CLOUDY (CLEAR); COLOR,URINE YELLOW (YELLOW); KETONES,URINE NEGATIVE (NEGATIVE); LEUKOCYTE ESTERASE ,URINE LARGE (NEGATIVE); NITRITE,URINE NEGATIVE (NEGATIVE); PROTEIN,URINE DIPSTICK NEGATIVE (NEGATIVE); URINE UROBILINOGEN 0.2 mg/dL (0.2 - 1)
[2021-08-26 12:20] LABS: BACTERIA,URINE FEW /HPF; EPITHELIAL CELLS,URINE FEW /LPF; WBC,URINE (MAN) >50 /HPF (0-5)
[2021-08-26 13:31] VITALS: BP 129/75
== END 2021-08-26 13:35 | disposition home or self-care (01) ==
LOC: ER 11:52
DX: N39.0 Urinary tract infection, site not specified (principal); I10 Essential (primary) hypertension; E78.5 Hyperlipidemia, unspecified; M06.9 Rheumatoid arthritis, unspecified; Z87.19 Personal history of other diseases of the digestive system
CPT/HCPCS: 81001; 87086; 99282

== ENCOUNTER 2024-02-22 15:59 | Emergency (ER) | payer BC ==
[~2024-02-22] VITALS: Ht 160 cm; Wt 56.7 kg
[2024-02-22 19:59] VITALS: TEMP 98
[2024-02-22 20:09] LABS: BASOPHILS # (AUTO) 0.1 (0.0-0.1); BASOPHILS % 0.8 % (0.0-1.0); EOSINOPHILS % 0.1 % (0.0-6.0); HEMATOCRIT 43.1 % (34.2-44.1); HEMOGLOBIN 13.6 g/dL (12.0-16.0); LYMPHOCYTES # (AUTO) 1.4 (1.0-3.2); LYMPHOCYTES % 15.1 % (18.0-39.1); MEAN CORPUSCULAR HEMOGLOBIN 29.6 pg (28-32); MEAN CORPUSCULAR HGB CONC 31.6 g/dL (31-35); MEAN CORPUSCULAR VOLUME 93.9 fL (81-99); MONOCYTES # (AUTO) 0.7 (0.2-0.8); MONOCYTES % 7.7 % (4.4-11.3); NEUTROPHILS # (AUTO) 6.8 (2.1-6.9); NEUTROPHILS % 76.1 % (38.7-80.0); PLATELET COUNT 544 x10e3/uL (140-360); RED BLOOD COUNT 4.59 x10e6/uL (3.6-5.1); RED CELL DISTRIBUTION WIDTH 18.5 % (11.7-14.4); WHITE BLOOD COUNT 8.93 x10e3/uL (4.8-10.8)
[2024-02-22 20:13] LABS: INR 1.03
[2024-02-22 20:14] LABS: PARTIAL THROMBOPLASTIN TIME 34.9 seconds (23.8-35.5)
[2024-02-22 20:21] LABS: ALBUMIN 3.6 g/dL (3.5-5.0); ALBUMIN/GLOBULIN RATIO 1.1 (0.8-2.0); ANION GAP 15.2 mmol/L (8-16); BILIRUBIN,TOTAL 0.2 mg/dL (0.2-1.2); CREATININE, SERUM 0.74 mg/dL (0.57-1.11); POTASSIUM 4.2 mmol/L (3.5-5.1)
[2024-02-22] MEDS: SODIUM CHLORIDE 0.9% 1000ML 1,000 ML IV ONE (20:54)
[2024-02-22 21:08] LABS: CLARITY,URINE SL CLOUDY (CLEAR); COLOR,URINE YELLOW (YELLOW); GLUCOSE, URINE NEGATIVE (NEGATIVE); KETONES,URINE NEGATIVE (NEGATIVE); LEUKOCYTE ESTERASE ,URINE NEGATIVE (NEGATIVE); NITRITE,URINE NEGATIVE (NEGATIVE); PH,URINE 6.5 (5 - 7); PROTEIN,URINE DIPSTICK NEGATIVE (NEGATIVE)
[2024-02-22 21:09] LABS: BILIRUBIN,URINE NEGATIVE (NEGATIVE); URINE UROBILINOGEN 0.2 mg/dL (0.2 - 1)
[2024-02-22 21:28] LABS: AMORPHOUS SEDIMENT,URINE MODERATE (FEW); BACTERIA,URINE MODERATE /HPF; EPITHELIAL CELLS,URINE MODERATE /LPF
[2024-02-22 22:00] VITALS: PULSE 72; RESP 16; O2SAT 100
== END 2024-02-23 01:25 | disposition home or self-care (01) ==
LOC: ER 18:03
DX: R60.9 Edema, unspecified (principal); M79.89 Other specified soft tissue disorders; I10 Essential (primary) hypertension; E78.5 Hyperlipidemia, unspecified; M06.9 Rheumatoid arthritis, unspecified; M19.90 Unspecified osteoarthritis, unspecified site; Z11.52 Encounter for screening for COVID-19; R94.31 Abnormal electrocardiogram [ECG] [EKG]; Z87.19 Personal history of other diseases of the digestive system; F17.210 Nicotine dependence, cigarettes, uncomplicated
CPT/HCPCS: 36415; 71045; 80053; 81001; 83605; 83880; 84484; 85025; 85610; 85730; 87040; 87086; 93005; 99283; J7030; U0002

== ENCOUNTER 2024-05-22 08:51 | Observation (INO) | payer BC ==
[2024-05-19 10:50] LABS: BASOPHILS # (AUTO) 0.1 (0.0-0.1); BASOPHILS % 0.8 % (0.0-1.0); EOSINOPHILS # (AUTO) 0.1 (0.0-0.4); EOSINOPHILS % 0.5 % (0.0-6.0); HEMATOCRIT 43.8 % (34.2-44.1); HEMOGLOBIN 13.9 g/dL (12.0-16.0); LYMPHOCYTES # (AUTO) 1.1 (1.0-3.2); LYMPHOCYTES % 9.8 % (18.0-39.1); MEAN CORPUSCULAR HEMOGLOBIN 29.3 pg (28-32); MEAN CORPUSCULAR HGB CONC 31.7 g/dL (31-35); MEAN CORPUSCULAR VOLUME 92.4 fL (81-99); MONOCYTES # (AUTO) 0.5 (0.2-0.8); MONOCYTES % 4.1 % (4.4-11.3); NEUTROPHILS # (AUTO) 9.5 (2.1-6.9); NEUTROPHILS % 84.5 % (38.7-80.0); PLATELET COUNT 497 x10e3/uL (140-360); RED BLOOD COUNT 4.74 x10e6/uL (3.6-5.1); RED CELL DISTRIBUTION WIDTH 17.6 % (11.7-14.4); WHITE BLOOD COUNT 11.28 x10e3/uL (4.8-10.8)
[2024-05-22] VITALS (7 sets, daily range): BP systolic 103–119; BP diastolic 55–80; PULSE 69–84; RESP 16–18; TEMP 97.2–98.2; O2SAT 95–100
[~2024-05-22] VITALS: Ht 160 cm; Wt 50.3 kg
[~2024-05-22 08:51] MED LIST changes: +FLAGYL375 MG; +MINOCYCLINE HCL50 MG PO
[2024-05-22] MEDS: GABAPENTIN 300 MG CAP ONE (09:11)
[2024-05-22] MEDS: DEXAMETHASONE SOD PHOS 10 MG/1 ML VIAL ONE (09:11)
[2024-05-22] MEDS: CELECOXIB 200 MG CAP ONE (09:11)
[2024-05-22] MEDS: CEFAZOLIN SODIUM 2 GM ONE (09:11)
[2024-05-22] MEDS: LACTATED RINGER'S 1,000 ML ONE (09:12)
[2024-05-22] MEDS ORDERED: LIDOCAINE HCL 2% LOCAL INJ 5 ML SDV VIAL INJ ONE (10:34)
[2024-05-22] MEDS ORDERED: PROPOFOL IV EMULSION 10 MG/ML 20 ML VIAL ONE (10:34)
[2024-05-22] MEDS ORDERED: TRANEXAMIC ACID 20 ML ONE (10:35)
[2024-05-22] MEDS ORDERED: SODIUM CHLORIDE 0.9% 500ML 500 ML ONE (10:35)
[2024-05-22] MEDS ORDERED: Vancomycin IV 500 MG ONE (10:35)
[2024-05-22] MEDS ORDERED: ONDANSETRON HCL INJ 2MG/ML 2ML 2 MG/ML VIAL ONE (11:05)
[2024-05-22] MEDS ORDERED: EPHEDRINE SULFATE INJ 50 MG/ML VIAL ONE (11:05)
[2024-05-22] MEDS ORDERED: DEXAMETHASONE SOD PHOS INJ 4 MG/ML SDV ONE (11:05)
[2024-05-22] MEDS ORDERED: FAMOTIDINE 20 MG/2 ML VIAL IV ONE (11:09)
[2024-05-22] MEDS ORDERED: GLYCOPYRROLATE INJ 0.2 MG/ML VIAL ONE (11:09)
[2024-05-22] MEDS ORDERED: ACETAMINOPHEN 1000 MG/100 ML 100 ML IV ONE (11:12)
[2024-05-22] MEDS ORDERED: PHENYLEPHRINE HCL 1% 10 MG/ML VIAL ONE (11:20)
[2024-05-22] MEDS ORDERED: DIPHENHYDRAMINE HCL INJ 50 MG/ML VIAL IV PRN (12:30)
[2024-05-22] MEDS ORDERED: DOCUSATE SODIUM 100 MG CAP PO PRN (12:30)
[2024-05-22] MEDS ORDERED: ONDANSETRON HCL INJ 2MG/ML 2ML 2 MG/ML VIAL IV PRN (12:30)
[2024-05-22] MEDS ORDERED: ACETAMINOPHEN 650 MG SUPP PR PRN (12:30)
[2024-05-22] MEDS: ONDANSETRON HCL INJ 2MG/ML 2ML 2 MG/ML VIAL IV ONE (13:02)
[2024-05-22] MEDS: FENTANYL CITRATE/PF 100MCG/2 ML INJ IV ONE ×2 (13:08→13:15)
[2024-05-22] MEDS: FENTANYL CITRATE/PF 100MCG/2 ML INJ ONE (15:35)
[2024-05-22] MEDS: ROPIVACAINE/EPI/CLONIDINE/KET 50 ML SYRINGE INJ ONE (15:35)
[2024-05-22] MEDS: SODIUM CHLORIDE 0.9% 1000ML 1,000 ML IV SCH (15:45)
[2024-05-22] MEDS ORDERED: INFLUENZA VIRUS VAC SPLIT INJ 0.5 ML SYR IM SCH (15:47)
[2024-05-22] MEDS ORDERED: ROSUVASTATIN-E1 EACH PO (15:55)
[2024-05-22] MEDS ORDERED: SPIRONOLACTONE25 MG PO (15:58)
[2024-05-22] MEDS ORDERED: ASPIRIN81 MG PO (15:58)
[2024-05-22] MEDS ORDERED: ALLERGY RELIEF10 M4 PO (16:00)
[2024-05-22] MEDS: HYDROCODONE/APAP 7.5MG-325MG 1 EA TAB PO PRN (16:02)
[2024-05-22] MEDS ORDERED: ROSUVASTATIN CA40 MG PO (16:27)
[2024-05-22] MEDS: CELECOXIB 200 MG CAP PO SCH (17:06)
[2024-05-22] MEDS: TRAMADOL HCL 50 MG TAB PO SCH (18:00)
[2024-05-22] MEDS: ATORVASTATIN 40 MG TAB PO SCH (20:44)
[2024-05-22] MEDS: OYST-CAL-D 500MG TABLET PO SCH (20:44)
[2024-05-22] MEDS ORDERED: ZOLPIDEM TARTRATE 5 MG TAB PO PRN (21:00)
[2024-05-22] MEDS: APIXABAN 5 MG TABLET PO SCH (22:03)
[2024-05-23] MEDS: HYDROCODONE/APAP 5MG-325MG TAB PO PRN (01:31)
[2024-05-23 03:29] VITALS: BP 107/75; PULSE 78; RESP 18; TEMP 98.6; O2SAT 99
[2024-05-23 06:10] LABS: HEMATOCRIT 33.5 % (34.2-44.1); HEMOGLOBIN 10.8 g/dL (12.0-16.0)
[2024-05-23 06:43] VITALS: PULSE 79; RESP 18; O2SAT 96
[2024-05-23 07:42] LABS: ALBUMIN 3.2 g/dL (3.5-5.0); ALBUMIN/GLOBULIN RATIO 1.3 (0.8-2.0); ANION GAP 11.7 mmol/L (8-16); BILIRUBIN,TOTAL 0.4 mg/dL (0.2-1.2); CALCIUM 9.7 mg/dL (8.4-10.2); CREATININE, SERUM 0.58 mg/dL (0.57-1.11); MAGNESIUM 1.6 MG/DL (1.3-2.1); PHOSPHORUS 3.1 MG/DL (2.3-4.7); POTASSIUM 3.7 mmol/L (3.5-5.1); TOTAL PROTEIN 5.6 g/dL (6.5-8.1)
[2024-05-23 08:00] VITALS: BP 137/67; PULSE 64; RESP 18; TEMP 98.3; O2SAT 100
[2024-05-23 08:02] LABS: FERRITIN 52.19 ng/mL (4.63-204.00)
[2024-05-23] MEDS: MULTIVITAMINS/MINERALS TAB PO SCH (08:52)
[2024-05-23] MEDS: ZINC SULFATE 50 MG CAP PO SCH (08:53)
[2024-05-23] MEDS: ASPIRIN 81 MG CHEW TAB PO SCH (08:53)
[2024-05-23] MEDS: PREDNISONE 5 MG TAB PO SCH (08:53)
[2024-05-23] MEDS: MAGNESIUM OXIDE 400 MG TAB PO SCH (08:53)
[2024-05-23] MEDS: ASCORBIC ACID 500 MG TAB PO SCH (08:53)
[2024-05-23] MEDS: AMLODIPINE BESYLATE 10 MG TAB PO SCH (08:54)
[2024-05-23 09:48] VITALS: BP 137/67; PULSE 64; RESP 18; TEMP 98.3; O2SAT 100
[2024-05-23] MEDS: IRON SUCROSE 100 MG in SODIUM CHLORIDE 0.9% 100 ML IV SCH (10:22)
[2024-05-23] MEDS: MAGNESIUM SULFATE 2GM/50ML 50 ML IV ONE (10:22)
[2024-05-23 12:05] VITALS: BP 142/64; PULSE 64; RESP 18; TEMP 97.7; O2SAT 100
[2024-05-23] MEDS ORDERED: ACETAMINOPHEN 1000 MG/100 ML IV PRN (12:30)
[2024-05-23] MEDS ORDERED: ULTRAM 50MG50 MG PO (12:50)
[2024-05-23] MEDS ORDERED: PREDNISONE5 MG PO (12:50)
[2024-05-23 13:26] VITALS: PULSE 75; RESP 18; O2SAT 97
[2024-05-23] MEDS ORDERED: APIXABAN 5 MG TABLET PO SCH (17:00)
== END 2024-05-23 16:40 | disposition home health service (06) ==
LOC: OR 08:51 → PACU V 12:25 → MED/SURG3 13:55
PROVIDERS: ADMIT Specialist; ATTEND Specialist
DX: M06.861 Other specified rheumatoid arthritis, right knee (principal); Z79.02 Long term (current) use of antithrombotics/antiplatelets; T81.89XA Other complications of procedures, not elsewhere classified, initial encounter; R11.0 Nausea; I10 Essential (primary) hypertension; E78.5 Hyperlipidemia, unspecified; F41.9 Anxiety disorder, unspecified; S81.811A Laceration without foreign body, right lower leg, initial encounter; X58.XXXA Exposure to other specified factors, initial encounter; D64.89 Other specified anemias; M17.11 Unilateral primary osteoarthritis, right knee; M65.861 Other synovitis and tenosynovitis, right lower leg; G62.9 Polyneuropathy, unspecified; E83.42 Hypomagnesemia; R53.81 Other malaise; Z96.642 Presence of left artificial hip joint; Z79.82 Long term (current) use of aspirin; Z79.899 Other long term (current) drug therapy; Z88.6 Allergy status to analgesic agent; Z88.8 Allergy status to other drugs, medicaments and biological substances; Z87.891 Personal history of nicotine dependence; Z86.718 Personal history of other venous thrombosis and embolism; Z01.812 Encounter for preprocedural laboratory examination
CPT/HCPCS: 27447; 36415 ×2; 73560; 80053; 82607; 82728; 82746; 83540; 83735; 84100; 84425; 84466; 85014; 85018; 85025; 86850; 86900; 94799 ×2; 97110; 97116 ×3; 97162; 97530 ×2; C1713 ×2; C1776 ×2; G0378 ×2; J0131; J0690 ×2; J1100 ×2; J1756; J2003; J2371; J2405; J2704; J3010; J3370; J3475; J7030 ×2; J7040; J7050; J7121; J7512

== ENCOUNTER 2024-05-29 17:47 | Emergency (ER) | payer BC, MEDICARE ==
[~2024-05-29] VITALS: Ht 160 cm; Wt 50.3 kg
[~2024-05-29 17:47] MED LIST changes: +ALLERGY RELIEF10 M4 PO; +ASPIRIN81 MG PO; +ROSUVASTATIN CA40 MG PO; +ROSUVASTATIN-E1 EACH PO; +SPIRONOLACTONE25 MG PO
[2024-05-29] MEDS: Morphine 4mg INJECTION 4 MG/ML INJ IV ONE (19:59)
[2024-05-29] MEDS: ONDANSETRON HCL INJ 2MG/ML 2ML 2 MG/ML VIAL IV STA (19:59)
[2024-05-29] MEDS: SODIUM CHLORIDE 0.9% 1000ML 1,000 ML IV ONE (19:59)
[2024-05-29 20:15] LABS: BASOPHILS # (AUTO) 0.1 (0.0-0.1); BASOPHILS % 0.4 % (0.0-1.0); EOSINOPHILS # (AUTO) 0.1 (0.0-0.4); EOSINOPHILS % 0.7 % (0.0-6.0); HEMATOCRIT 35.2 % (34.2-44.1); HEMOGLOBIN 11.2 g/dL (12.0-16.0); LYMPHOCYTES # (AUTO) 2.1 (1.0-3.2); LYMPHOCYTES % 15.1 % (18.0-39.1); MEAN CORPUSCULAR HEMOGLOBIN 29.7 pg (28-32); MEAN CORPUSCULAR HGB CONC 31.8 g/dL (31-35); MEAN CORPUSCULAR VOLUME 93.4 fL (81-99); MONOCYTES # (AUTO) 1.1 (0.2-0.8); MONOCYTES % 8.1 % (4.4-11.3); NEUTROPHILS # (AUTO) 10.3 (2.1-6.9); NEUTROPHILS % 75.3 % (38.7-80.0); PLATELET COUNT 453 x10e3/uL (140-360); RED BLOOD COUNT 3.77 x10e6/uL (3.6-5.1); RED CELL DISTRIBUTION WIDTH 17.2 % (11.7-14.4); WHITE BLOOD COUNT 13.62 x10e3/uL (4.8-10.8)
[2024-05-29 20:25] LABS: INR 0.83; PROTHROMBIN TIME 11.9 seconds (11.9-14.5)
[2024-05-29 20:26] LABS: PARTIAL THROMBOPLASTIN TIME 20.7 seconds (23.8-35.5)
[2024-05-29 20:32] LABS: CORONAVIRUS COVID-19 AG NEGATIVE (NEGATIVE); INFLUENZA A AG NEGATIVE (NEGATIVE); INFLUENZA B AG NEGATIVE (NEGATIVE)
[2024-05-29 20:34] LABS: ALBUMIN 3.5 g/dL (3.5-5.0); ALBUMIN/GLOBULIN RATIO 1.1 (0.8-2.0); ANION GAP 14.3 mmol/L (8-16); BILIRUBIN,TOTAL 0.7 mg/dL (0.2-1.2); CREATININE, SERUM 0.58 mg/dL (0.57-1.11); POTASSIUM 3.3 mmol/L (3.5-5.1); TOTAL PROTEIN 6.6 g/dL (6.5-8.1)
[2024-05-29 20:55] LABS: CLARITY,URINE CLEAR (CLEAR); COLOR,URINE YELLOW (YELLOW); GLUCOSE, URINE NEGATIVE (NEGATIVE); LEUKOCYTE ESTERASE ,URINE NEGATIVE (NEGATIVE); NITRITE,URINE NEGATIVE (NEGATIVE); PH,URINE 6.5 (5 - 7); PROTEIN,URINE DIPSTICK 2+ (NEGATIVE)
[2024-05-29 20:56] LABS: BILIRUBIN,URINE SMALL (NEGATIVE); KETONES,URINE NEGATIVE (NEGATIVE); URINE UROBILINOGEN 1 mg/dL (0.2 - 1)
[2024-05-29 21:08] LABS: BACTERIA,URINE MODERATE /HPF; EPITHELIAL CELLS,URINE MODERATE /LPF
[2024-05-29 21:54] VITALS: PULSE 94; RESP 20; TEMP 97.9; O2SAT 100
== END 2024-05-29 22:15 | disposition home or self-care (01) ==
LOC: ER 18:10
DX: G89.18 Other acute postprocedural pain (principal); Z96.651 Presence of right artificial knee joint; M25.561 Pain in right knee; I10 Essential (primary) hypertension; E78.5 Hyperlipidemia, unspecified; M06.9 Rheumatoid arthritis, unspecified; M19.09 Primary osteoarthritis, other specified site; F17.210 Nicotine dependence, cigarettes, uncomplicated
CPT/HCPCS: 36415; 71045; 80053; 81001; 85025; 85610; 85730; 87428; 93971; 99284; J2270; J2405; J7030

== ENCOUNTER 2024-06-21 11:11 | Inpatient (IN) | payer BC ==
[~2024-06-21] VITALS: Ht 160 cm; Wt 50.3 kg
[2024-06-21 13:00] VITALS: BP 112/69; PULSE 77; RESP 20; O2SAT 98
[2024-06-21] MEDS: HYDROCODONE/APAP 7.5MG-325MG 1 EA TAB PO PRN (15:45)
[2024-06-21 17:00] LABS: BASOPHILS # (AUTO) 0.1 (0.0-0.1); BASOPHILS % 0.6 % (0.0-1.0); EOSINOPHILS # (AUTO) 0.1 (0.0-0.4); EOSINOPHILS % 1.2 % (0.0-6.0); HEMATOCRIT 38.6 % (34.2-44.1); HEMOGLOBIN 12.5 g/dL (12.0-16.0); LYMPHOCYTES # (AUTO) 1.6 (1.0-3.2); LYMPHOCYTES % 16.5 % (18.0-39.1); MEAN CORPUSCULAR HGB CONC 32.4 g/dL (31-35); MEAN CORPUSCULAR VOLUME 95.8 fL (81-99); MONOCYTES # (AUTO) 1.1 (0.2-0.8); MONOCYTES % 11.4 % (4.4-11.3); NEUTROPHILS # (AUTO) 6.7 (2.1-6.9); PLATELET COUNT 561 x10e3/uL (140-360); RED BLOOD COUNT 4.03 x10e6/uL (3.6-5.1); WHITE BLOOD COUNT 9.63 x10e3/uL (4.8-10.8)
[2024-06-21 17:16] VITALS: BP 115/70; PULSE 97; RESP 20; TEMP 98.5; O2SAT 97
[2024-06-21 17:33] LABS: INR 0.85; PARTIAL THROMBOPLASTIN TIME 25.8 seconds (23.8-35.5); PROTHROMBIN TIME 12.1 seconds (11.9-14.5)
[2024-06-21 17:42] LABS: ALBUMIN 3.6 g/dL (3.5-5.0); ALBUMIN/GLOBULIN RATIO 1.2 (0.8-2.0); ANION GAP 14.1 mmol/L (8-16); BILIRUBIN,TOTAL 0.3 mg/dL (0.2-1.2); CALCIUM 9.5 mg/dL (8.4-10.2); CREATININE, SERUM 0.7 mg/dL (0.57-1.11); TOTAL PROTEIN 6.6 g/dL (6.5-8.1)
[2024-06-21 17:44] LABS: POTASSIUM 3.1 mmol/L (3.5-5.1)
[2024-06-21 20:00] VITALS: BP 153/66; PULSE 84; RESP 18; TEMP 97.6; O2SAT 100
[2024-06-22] VITALS (10 sets, daily range): BP systolic 109–161; BP diastolic 57–93; PULSE 67–90; RESP 16–20; TEMP 96.8–98.8; O2SAT 96–100
[2024-06-22] MEDS ORDERED: POLYETHYLENE GLYCOL 3350 17 GM PACK PO PRN
[2024-06-22] MEDS ORDERED: HYDRALAZINE HCL 20 MG/ML VIAL IV PRN
[2024-06-22] MEDS ORDERED: ACETAMINOPHEN 325 MG SUPP PR PRN
[2024-06-22] MEDS: POTASSIUM CHLORIDE 10MEQ EA PO STA (00:26)
[2024-06-22 05:13] LABS: BASOPHILS # (AUTO) 0.1 (0.0-0.1); BASOPHILS % 1.3 % (0.0-1.0); EOSINOPHILS # (AUTO) 0.2 (0.0-0.4); EOSINOPHILS % 2.5 % (0.0-6.0); HEMATOCRIT 39.7 % (34.2-44.1); HEMOGLOBIN 12.5 g/dL (12.0-16.0); LYMPHOCYTES # (AUTO) 2.3 (1.0-3.2); LYMPHOCYTES % 27.9 % (18.0-39.1); MEAN CORPUSCULAR HEMOGLOBIN 30.9 pg (28-32); MEAN CORPUSCULAR HGB CONC 31.5 g/dL (31-35); MONOCYTES # (AUTO) 0.9 (0.2-0.8); MONOCYTES % 10.6 % (4.4-11.3); NEUTROPHILS # (AUTO) 4.8 (2.1-6.9); NEUTROPHILS % 57.3 % (38.7-80.0); PLATELET COUNT 493 x10e3/uL (140-360); RED BLOOD COUNT 4.05 x10e6/uL (3.6-5.1); RED CELL DISTRIBUTION WIDTH 16.4 % (11.7-14.4); RETICULOCYTE % 2.3 % (0.8-2.2); WHITE BLOOD COUNT 8.32 x10e3/uL (4.8-10.8)
[2024-06-22 05:42] LABS: ALBUMIN 3.2 g/dL (3.5-5.0); ALBUMIN/GLOBULIN RATIO 1.1 (0.8-2.0); ANION GAP 13.9 mmol/L (8-16); BILIRUBIN,TOTAL 0.3 mg/dL (0.2-1.2); CALCIUM 9.3 mg/dL (8.4-10.2); CHOL/HDL RATIO 6.3 (3.0-3.6); CREATININE, SERUM 0.55 mg/dL (0.57-1.11); MAGNESIUM 1.9 MG/DL (1.3-2.1); PHOSPHORUS 2.8 MG/DL (2.3-4.7); POTASSIUM 3.9 mmol/L (3.5-5.1)
[2024-06-22 06:04] LABS: FERRITIN 181.85 ng/mL (4.63-204.00); FREE T4 (FREE THYROXINE) 1.03 ng/dL (0.8-1.8); THYROID STIMULATING HORMONE 1.43 uIU/mL (0.350-4.940)
[2024-06-22 06:16] LABS: FOLATE 18.9 ng/mL (7.0-15.4)
[2024-06-22] MEDS ORDERED: FENTANYL CITRATE/PF 100MCG/2 ML INJ ONE (06:47)
[2024-06-22] MEDS ORDERED: PROPOFOL IV EMULSION 10 MG/ML 20 ML VIAL ONE (06:47)
[2024-06-22] MEDS ORDERED: LIDOCAINE HCL 2% LOCAL INJ 5 ML SDV VIAL INJ ONE (06:50)
[2024-06-22] MEDS ORDERED: DEXMEDETOMIDINE HCL 2 ML ONE (06:51)
[2024-06-22] MEDS ORDERED: PHENYLEPHRINE HCL 1% 10 MG/ML VIAL ONE ×2 (07:19→07:23)
[2024-06-22] MEDS ORDERED: EPHEDRINE SULFATE INJ 50 MG/ML VIAL ONE (07:21)
[2024-06-22] MEDS ORDERED: SODIUM CHLORIDE 0.9% 100 ML ONE ×2 (07:29→07:51)
[2024-06-22] MEDS ORDERED: ROCURONIUM BROMIDE 1 ML IV ONE (07:46)
[2024-06-22] MEDS ORDERED: SEVOFLURANE INHAL SOLN 250 ML PEN BTL ONE (07:47)
[2024-06-22] MEDS ORDERED: ONDANSETRON HCL INJ 2MG/ML 2ML 2 MG/ML VIAL ONE (08:03)
[2024-06-22] MEDS ORDERED: HYDROMORPHONE 2MG/ML ONE (08:03)
[2024-06-22] MEDS ORDERED: KETOROLAC TROMETHAMINE 30 MG/ML VIAL ONE (08:03)
[2024-06-22] MEDS ORDERED: SUGAMMADEX SODIUM 200 MG/2 ML VIAL IV ONE (08:05)
[2024-06-22] MEDS ORDERED: DIPHENHYDRAMINE HCL INJ 50 MG/ML VIAL IV PRN ×2 (08:15)
[2024-06-22] MEDS ORDERED: ONDANSETRON HCL INJ 2MG/ML 2ML 2 MG/ML VIAL IV PRN ×2 (08:15)
[2024-06-22] MEDS ORDERED: HYDROCODONE/APAP 7.5MG-325MG 1 EA TAB PO PRN (08:15)
[2024-06-22] MEDS ORDERED: HYDROCODONE/APAP 5MG-325MG TAB PO PRN (08:15)
[2024-06-22] MEDS: SODIUM CHLORIDE 0.9% 1000ML 1,000 ML IV SCH (08:15)
[2024-06-22] MEDS ORDERED: DOCUSATE SODIUM 100 MG CAP PO PRN ×2 (08:15)
[2024-06-22] MEDS ORDERED: ZOLPIDEM TARTRATE 5 MG TAB PO PRN ×2 (08:15)
[2024-06-22] MEDS ORDERED: ACETAMINOPHEN 650 MG SUPP PR PRN ×2 (08:15)
[2024-06-22] MEDS ORDERED: Vancomycin IV 1 GM in SODIUM CHLORIDE 0.9% 250ML 250 ML IV SCH (08:15)
[2024-06-22] MEDS: CELECOXIB 200 MG CAP PO SCH (09:00)
[2024-06-22] MEDS ORDERED: ASPIRIN 325 MG TAB PO SCH (09:00)
[2024-06-22] MEDS: ZINC SULFATE 50 MG CAP PO SCH (09:00)
[2024-06-22] MEDS: TRAMADOL HCL 50 MG TAB PO SCH (09:00)
[2024-06-22] MEDS: ASPIRIN 325 MG TAB PO SCH (09:00)
[2024-06-22] MEDS: FAMOTIDINE 20 MG/2 ML VIAL IV SCH (09:00)
[2024-06-22] MEDS ORDERED: CELECOXIB 100 MG CAP PO SCH (09:00)
[2024-06-22] MEDS: DOCUSATE SODIUM 100 MG CAP PO SCH (09:00)
[2024-06-22] MEDS: ASCORBIC ACID 500 MG TAB PO SCH (09:00)
[2024-06-22] MEDS: IRON SUCROSE 100 MG in SODIUM CHLORIDE 0.9% 100 ML IV SCH ×2 (09:00→20:49)
[2024-06-22] MEDS: SPIRONOLACTONE 25 MG TAB PO SCH (09:00)
[2024-06-22] MEDS: CALCIUM CARBONATE/VITAMIN D3 500 MG TAB PO SCH (09:00)
[2024-06-22] MEDS: MAGNESIUM OXIDE 400 MG TAB PO SCH (09:00)
[2024-06-22] MEDS: HYDROMORPHONE 1MG/1ML INJ ONE (12:33)
[2024-06-22] MEDS: MINOCYCLINE HCL 50 MG CAP PO SCH (13:14)
[2024-06-22] MEDS: AMLODIPINE BESYLATE 10 MG TAB PO SCH (13:14)
[2024-06-22] MEDS: MULTIVITAMINS/MINERALS TAB PO SCH (13:14)
[2024-06-22] MEDS: PREDNISONE 5 MG TAB PO SCH (13:15)
[2024-06-22] MEDS: HYDROCODONE/APAP 7.5MG-325MG 1 EA TAB PO PRN (16:40)
[2024-06-22] MEDS: Vancomycin IV 1 GM in SODIUM CHLORIDE 0.9% 250ML 250 ML IV SCH (17:50)
[2024-06-22] MEDS: CRESTOR 10MG PO SCH (20:48)
[2024-06-23] VITALS (8 sets, daily range): BP systolic 117–159; BP diastolic 59–74; PULSE 61–82; RESP 17–20; TEMP 98–98.9; O2SAT 95–100
[2024-06-23] MEDS: ACETAMINOPHEN 325 MG TAB PO PRN (04:47)
[2024-06-23 05:18] LABS: HEMOGLOBIN 10.7 g/dL (12.0-16.0)
[2024-06-23] MEDS: Morphine 2mg Syringe 2 MG/ML SYR IV PRN (05:31)
[2024-06-23] MEDS: ONDANSETRON HCL INJ 2MG/ML 2ML 2 MG/ML VIAL IV PRN (05:32)
[2024-06-23] MEDS ORDERED: ACETAMINOPHEN 1000 MG/100 ML IV PRN ×2 (08:15)
[2024-06-23] MEDS: TIZANIDINE HCL 4 MG TAB PO SCH (10:54)
[2024-06-23] MEDS: TIZANIDINE HCL 4 MG TAB PO PRN (17:07)
[2024-06-24] VITALS (9 sets, daily range): BP systolic 123–157; BP diastolic 54–92; PULSE 62–83; RESP 18–20; TEMP 97.6–98.2; O2SAT 97–100
[2024-06-24 06:33] LABS: HEMATOCRIT 32.5 % (34.2-44.1); HEMOGLOBIN 10.5 g/dL (12.0-16.0)
[2024-06-24] MEDS: CEFTRIAXONE 2 GM in SODIUM CHLORIDE 0.9% 100 ML IV SCH (08:57)
[2024-06-24] MEDS: HYDROCODONE/APAP 5MG-325MG TAB PO PRN (11:52)
[2024-06-25] VITALS (10 sets, daily range): BP systolic 136–169; BP diastolic 59–76; PULSE 64–79; RESP 17–18; TEMP 97.2–98.7; O2SAT 98–100
[2024-06-25] MEDS: APIXABAN 5 MG TABLET PO SCH (16:48)
[2024-06-26] VITALS (11 sets, daily range): BP systolic 130–168; BP diastolic 61–72; PULSE 68–76; RESP 16–20; TEMP 97.8–98.6; O2SAT 96–100
[2024-06-26] MEDS: FAMOTIDINE 20 MG/2 ML VIAL IV SCH (09:20)
[2024-06-27] VITALS (8 sets, daily range): BP systolic 145–185; BP diastolic 67–80; PULSE 68–77; RESP 16–20; TEMP 97.6–98.3; O2SAT 98–100
[2024-06-28] VITALS (10 sets, daily range): BP systolic 142–175; BP diastolic 71–84; PULSE 62–75; RESP 16–22; TEMP 97.9–98.1; O2SAT 96–100
[2024-06-28 05:51] LABS: BASOPHILS # (AUTO) 0.1 (0.0-0.1); BASOPHILS % 0.7 % (0.0-1.0); EOSINOPHILS # (AUTO) 0.4 (0.0-0.4); EOSINOPHILS % 3.2 % (0.0-6.0); HEMATOCRIT 35.6 % (34.2-44.1); LYMPHOCYTES # (AUTO) 1.7 (1.0-3.2); LYMPHOCYTES % 13.4 % (18.0-39.1); MEAN CORPUSCULAR HEMOGLOBIN 31.2 pg (28-32); MEAN CORPUSCULAR HGB CONC 30.9 g/dL (31-35); MEAN CORPUSCULAR VOLUME 100.8 fL (81-99); MONOCYTES # (AUTO) 1.2 (0.2-0.8); MONOCYTES % 9.4 % (4.4-11.3); NEUTROPHILS # (AUTO) 9.3 (2.1-6.9); NEUTROPHILS % 72.8 % (38.7-80.0); PLATELET COUNT 497 x10e3/uL (140-360); RED BLOOD COUNT 3.53 x10e6/uL (3.6-5.1); RED CELL DISTRIBUTION WIDTH 17.1 % (11.7-14.4); WHITE BLOOD COUNT 12.79 x10e3/uL (4.8-10.8)
[2024-06-28 06:17] LABS: ANION GAP 14.8 mmol/L (8-16); CALCIUM 9.1 mg/dL (8.4-10.2); CREATININE, SERUM 0.51 mg/dL (0.57-1.11); POTASSIUM 3.8 mmol/L (3.5-5.1)
[2024-06-28] MEDS: ASPIRIN 325 MG TAB PO SCH (09:00)
[2024-06-28] MEDS: BUSPIRONE HCL 5 MG TAB PO SCH (20:55)
[2024-06-29] VITALS (8 sets, daily range): BP systolic 145–172; BP diastolic 57–86; PULSE 61–72; RESP 18; TEMP 97.8–98.2; O2SAT 97–100
[2024-06-29 04:57] LABS: BASOPHILS # (AUTO) 0.1 (0.0-0.1); BASOPHILS % 0.8 % (0.0-1.0); EOSINOPHILS # (AUTO) 0.3 (0.0-0.4); EOSINOPHILS % 3.4 % (0.0-6.0); HEMATOCRIT 33.8 % (34.2-44.1); HEMOGLOBIN 10.4 g/dL (12.0-16.0); LYMPHOCYTES # (AUTO) 1.9 (1.0-3.2); LYMPHOCYTES % 19.9 % (18.0-39.1); MEAN CORPUSCULAR HGB CONC 30.8 g/dL (31-35); MEAN CORPUSCULAR VOLUME 100.6 fL (81-99); MONOCYTES # (AUTO) 0.9 (0.2-0.8); MONOCYTES % 9.2 % (4.4-11.3); NEUTROPHILS # (AUTO) 6.4 (2.1-6.9); NEUTROPHILS % 66.4 % (38.7-80.0); PLATELET COUNT 444 x10e3/uL (140-360); RED BLOOD COUNT 3.36 x10e6/uL (3.6-5.1); RED CELL DISTRIBUTION WIDTH 17.1 % (11.7-14.4); WHITE BLOOD COUNT 9.69 x10e3/uL (4.8-10.8)
[2024-06-29 05:26] LABS: ALBUMIN 2.6 g/dL (3.5-5.0); ANION GAP 12.7 mmol/L (8-16); BILIRUBIN,TOTAL 0.1 mg/dL (0.2-1.2); CREATININE, SERUM 0.56 mg/dL (0.57-1.11); MAGNESIUM 1.7 MG/DL (1.3-2.1); PHOSPHORUS 3.5 MG/DL (2.3-4.7); POTASSIUM 3.7 mmol/L (3.5-5.1); TOTAL PROTEIN 5.1 g/dL (6.5-8.1)
[2024-06-29] MEDS ORDERED: HYDROCODONE/APAP 5MG-325MG TAB PO PRN (08:45)
[2024-06-29] MEDS ORDERED: ZOLPIDEM TARTRATE 5 MG TAB PO PRN (08:45)
[2024-06-29] MEDS: HYDROCODONE/APAP 7.5MG-325MG 1 EA TAB PO PRN (09:43)
[2024-06-30] VITALS (11 sets, daily range): BP systolic 125–158; BP diastolic 53–84; PULSE 64–104; RESP 18–20; TEMP 97.5–98.9; O2SAT 98–100
[2024-06-30] MEDS ORDERED: ONDANSETRON HCL 4 MG ORAL DISINTEGRATING TAB PO PRN (07:45)
[2024-06-30] MEDS: Morphine 2mg Syringe 2 MG/ML SYR IV PRN (11:28)
[2024-06-30] MEDS: TRAMADOL HCL 50 MG TAB PO PRN (16:42)
[2024-06-30] MEDS: CRESTOR 10MG PO ONE (22:17)
[2024-07-01] VITALS (8 sets, daily range): BP systolic 132–155; BP diastolic 51–72; PULSE 63–69; RESP 16–20; TEMP 97.6–98.3; O2SAT 98–100
[2024-07-02 05:00] VITALS: BP 135/74; PULSE 64; RESP 18; TEMP 97.8; O2SAT 99
[2024-07-02 07:30] VITALS: BP 135/74; PULSE 77; RESP 18; TEMP 97.9; O2SAT 95
[2024-07-02 08:30] VITALS: BP 135/74; PULSE 77; RESP 18; TEMP 97.9; O2SAT 95
[2024-07-02] MEDS ORDERED: CYCLOBENZAPRINE HCL 10 MG TAB PO PRN (10:30)
[2024-07-02] MEDS: CYCLOBENZAPRINE HCL 10 MG TAB PO ONE (11:44)
[2024-07-02 12:00] VITALS: BP 145/70; PULSE 73; RESP 18; TEMP 98.3; O2SAT 100
[2024-07-02 16:00] VITALS: BP 142/69; PULSE 70; RESP 18; TEMP 98.2; O2SAT 100
[2024-07-02 22:07] VITALS: BP 158/71; PULSE 75; RESP 18; TEMP 98; O2SAT 98
[2024-07-03 03:17] VITALS: BP 138/77; PULSE 71; RESP 20; TEMP 97.7; O2SAT 100
[2024-07-03 05:25] LABS: BASOPHILS # (AUTO) 0.1 (0.0-0.1); BASOPHILS % 0.9 % (0.0-1.0); EOSINOPHILS # (AUTO) 0.3 (0.0-0.4); HEMATOCRIT 37.7 % (34.2-44.1); HEMOGLOBIN 11.6 g/dL (12.0-16.0); LYMPHOCYTES # (AUTO) 1.4 (1.0-3.2); LYMPHOCYTES % 13.1 % (18.0-39.1); MEAN CORPUSCULAR HEMOGLOBIN 31.4 pg (28-32); MEAN CORPUSCULAR HGB CONC 30.8 g/dL (31-35); MEAN CORPUSCULAR VOLUME 102.2 fL (81-99); MONOCYTES % 9.3 % (4.4-11.3); NEUTROPHILS # (AUTO) 8.1 (2.1-6.9); NEUTROPHILS % 73.4 % (38.7-80.0); PLATELET COUNT 531 x10e3/uL (140-360); RED BLOOD COUNT 3.69 x10e6/uL (3.6-5.1); RED CELL DISTRIBUTION WIDTH 17.2 % (11.7-14.4); WHITE BLOOD COUNT 10.99 x10e3/uL (4.8-10.8)
[2024-07-03 05:53] LABS: ALBUMIN 3.2 g/dL (3.5-5.0); ALBUMIN/GLOBULIN RATIO 1.2 (0.8-2.0); ANION GAP 13.2 mmol/L (8-16); BILIRUBIN,TOTAL 0.2 mg/dL (0.2-1.2); CALCIUM 9.4 mg/dL (8.4-10.2); CREATININE, SERUM 0.56 mg/dL (0.57-1.11); MAGNESIUM 1.8 MG/DL (1.3-2.1); PHOSPHORUS 3.8 MG/DL (2.3-4.7); POTASSIUM 4.2 mmol/L (3.5-5.1); TOTAL PROTEIN 5.9 g/dL (6.5-8.1)
[2024-07-03 08:01] VITALS: BP 144/70; PULSE 72; RESP 18; TEMP 98.2; O2SAT 100
[2024-07-03 08:03] VITALS: BP 144/70; PULSE 72; RESP 18; TEMP 98.2; O2SAT 100
[2024-07-03 08:56] VITALS: PULSE 74; RESP 18; O2SAT 97
[2024-07-03 16:34] VITALS: BP 135/56; PULSE 72; RESP 18; TEMP 98.4; O2SAT 100
[2024-07-03 20:00] VITALS: BP 120/70; PULSE 77; RESP 19; TEMP 97.7; O2SAT 100
[2024-07-04] VITALS (8 sets, daily range): BP systolic 122–157; BP diastolic 65–90; PULSE 62–75; RESP 18–19; TEMP 96.2–98.1; O2SAT 98–100
[2024-07-04] MEDS: CEFTRIAXONE 2 GM in SODIUM CHLORIDE 0.9% 100 ML IV SCH (14:09)
[2024-07-05] VITALS: BP 135/72; PULSE 71; RESP 18; TEMP 97.3; O2SAT 99
[2024-07-05 04:00] VITALS: BP 125/87; PULSE 73; RESP 20; TEMP 97.9; O2SAT 100
[2024-07-05 08:00] VITALS: BP 145/95; PULSE 75; RESP 19; TEMP 98.2; O2SAT 99
[2024-07-05 12:21] VITALS: BP 121/79; PULSE 78; RESP 19; TEMP 97.6; O2SAT 98
[2024-07-05 16:00] VITALS: BP 144/85; PULSE 72; RESP 19; TEMP 98; O2SAT 100
[2024-07-05] MEDS: LORATADINE 10 MG TAB PO PRN (17:56)
[2024-07-05 20:00] VITALS: BP 153/83; PULSE 72; RESP 18; TEMP 97.9; O2SAT 99
[2024-07-06 02:05] VITALS: BP 153/83; PULSE 72; RESP 18; TEMP 97.9; O2SAT 99
[2024-07-06 08:00] VITALS: BP 157/77; PULSE 72; RESP 16; O2SAT 100
[2024-07-06 11:36] VITALS: BP 157/77; PULSE 72; RESP 16; TEMP 97.9; O2SAT 100
[2024-07-06 12:00] VITALS: BP 126/79; PULSE 72; RESP 20; TEMP 98.2; O2SAT 100
[2024-07-06] MEDS: HYDROCODONE/APAP 7.5MG-325MG 1 EA TAB PO ONE (12:30)
== END 2024-07-06 13:00 | DRG 486 ==
LOC: MED/SURG 11:15
PROVIDERS: ADMIT Specialist; ATTEND Specialist
PROC: 0LQQ0ZZ Repair Right Knee Tendon, Open Approach (ICD-10-PCS; 2024-06-22)
PROC: 02HV33Z Insertion of Infusion Device into Superior Vena Cava, Percutaneous Approach (ICD-10-PCS; 2024-06-22)
PROC: 0SUV09Z Supplement Right Knee Joint, Tibial Surface with Liner, Open Approach (ICD-10-PCS; principal; 2024-06-22 07:14)
PROC: 0SPC09Z Removal of Liner from Right Knee Joint, Open Approach (ICD-10-PCS; 2024-06-22 07:14)
PROC: 02HV33Z Insertion of Infusion Device into Superior Vena Cava, Percutaneous Approach (ICD-10-PCS; 2024-06-27)
PROC: 02HV33Z Insertion of Infusion Device into Superior Vena Cava, Percutaneous Approach (ICD-10-PCS; 2024-07-04)
DX: T84.53XA Infection and inflammatory reaction due to internal right knee prosthesis, initial encounter (principal); D68.32 Hemorrhagic disorder due to extrinsic circulating anticoagulants; I82.611 Acute embolism and thrombosis of superficial veins of right upper extremity; M86.9 Osteomyelitis, unspecified; M25.061 Hemarthrosis, right knee; T84.092A Other mechanical complication of internal right knee prosthesis, initial encounter; D64.9 Anemia, unspecified; E78.5 Hyperlipidemia, unspecified; S76.101A Unspecified injury of right quadriceps muscle, fascia and tendon, initial encounter; E87.6 Hypokalemia; I10 Essential (primary) hypertension; F41.9 Anxiety disorder, unspecified; G89.4 Chronic pain syndrome; M06.9 Rheumatoid arthritis, unspecified; M15.9 Polyosteoarthritis, unspecified; Y83.1 Surgical operation with implant of artificial internal device as the cause of abnormal reaction of the patient, or of later complication, without mention of misadventure at the time of the procedure; T45.515A Adverse effect of anticoagulants, initial encounter; Z79.01 Long term (current) use of anticoagulants; Z79.82 Long term (current) use of aspirin; Z79.52 Long term (current) use of systemic steroids; Z86.718 Personal history of other venous thrombosis and embolism; Z88.5 Allergy status to narcotic agent; Z88.8 Allergy status to other drugs, medicaments and biological substances; F17.290 Nicotine dependence, other tobacco product, uncomplicated
CPT/HCPCS: 36415; 36569; 71045; 74470; 80048; 80053; 80061; 82607; 82728; 82746; 82948; 83036; 83540; 83735; 84100; 84439; 84443; 84466; 85014; 85018; 85025; 85045; 85610; 85730; 86140; 87070; 87071; 87075; 87205; 93005; 93971; 94799; 99252; C1776; J0690; J0696; J1171; J1756; J1885; J2003; J2270; J2371; J2405; J7030; J7050; J7512